=== PATIENT | male | born 1955 | race Caucasian/White ===

== ENCOUNTER → 2017-03-30 | Outpatient (REF) ==
[~2017-03-30] MED LIST: ALEVE220 MG PO; ASPIRIN E.C. 8181 MG PO; ATENOLOL100 MG PO; CENTRUM SILVER1 TA1 PO; DILTIAZEM CD240 MG PO; FLOMAX0.4 MG PO; MELOXICAM15 MG PO; PRILOSEC 20MG20 MG PO; TRIAMTERENE/HCT1 TA2 PO; [UNRECOGNIZED DRUG - OTHER] PO
== END ==
LOC: WSOH 13:12
DX: Z00.00 Encounter for general adult medical examination without abnormal findings (principal)
CPT/HCPCS: G0463